=== PATIENT | male | born 1995 | race Caucasian/White ===

== ENCOUNTER 2022-03-31 20:29 | Emergency (ER) | payer OTHER ==
[~2022-03-31] VITALS: Ht 182.9 cm; Wt 90.7 kg
[2022-03-31] MEDS ORDERED: RISPERIDONE1 MG (22:15)
[2022-03-31] MEDS ORDERED: PRAZOSIN HCL1 MG (22:15)
[2022-03-31] MEDS ORDERED: NAPROSYN500 MG PO (22:27)
== END 2022-03-31 23:53 | disposition home or self-care (01) ==
LOC: ED 20:29
DX: S53.402A Unspecified sprain of left elbow, initial encounter (principal); W10.9XXA Fall (on) (from) unspecified stairs and steps, initial encounter; Z79.899 Other long term (current) drug therapy
CPT/HCPCS: 73080; 99283-25

== ENCOUNTER 2022-04-10 12:21 | Emergency (ER) | payer OTHER ==
[~2022-04-10] VITALS: Ht 182.9 cm; Wt 90.7 kg
[~2022-04-10 12:21] MED LIST: NAPROSYN500 MG PO; PRAZOSIN HCL1 MG; RISPERIDONE1 MG
--- OUTSIDE RECORDS SUMMARY | 2022-04-10 12:24 | XMS ---
PreManage Notification: RASHID SALTER Security Spin Instructor Events No recent Security Events currently on file CRITERIA MET - [facility] - 2 Visits in 30 Days CARE PROVIDERS HUI SHER Current PHONE: [phone] CARMEN VILLALBA Physician American Indian Policy Specialist Current PHONE: [phone] JOSÉ ANTONIO REINOSO [facility] PHONE: [phone] Luz Maria has no Care Guidelines for this patient. E.D. VISIT COUNT (12 MO.) 2 [facility] TOTAL 2 NOTE: Visits indicate total known visits. ED/UCC VISIT TRACKING (12 MO.) 04/10/2022 12:22 [facility] [place] TYPE: Emergency COMPLAINT: - L ELBOW PAIN 03/31/2022 20:31 [facility] [place] TYPE: Emergency COMPLAINT: - LT ARM INJURY DIAGNOSES: - Other [facility] (current) drug therapy - Pain in left elbow - Unspecified sprain of left elbow, initial encounter - Fall (on) (from) unspecified stairs and steps, initial encounter INPATIENT VISIT TRACKING (12 MO.) No inpatient visits to display in this time frame [id number]
== END 2022-04-10 16:17 | disposition home or self-care (01) ==
LOC: ED 12:21
DX: S52.122A Displaced fracture of head of left radius, initial encounter for closed fracture (principal); W18.30XA Fall on same level, unspecified, initial encounter
CPT/HCPCS: 29105; 73080; 99283-25

== ENCOUNTER → 2022-06-01 | Emergency (ER) | payer OTHER ==
[~2022-06-01] VITALS: Ht 182.9 cm; Wt 88.2 kg
[~2022-06-01] MED LIST changes: +CLONIDINE HCL0.1 MG PO; +PRAZOSIN HCL2 MG PO; -RISPERIDONE1 MG; +RISPERIDONE1 MG PO
== END ==
LOC: ED 15:39
DX: F29 Unspecified psychosis not due to a substance or known physiological condition (principal); R45.851 Suicidal ideations; Z20.822 Contact with and (suspected) exposure to COVID-19; Z79.899 Other long term (current) drug therapy
CPT/HCPCS: 36415; 80053; 81001; 84443; 85025; 87502; 99284; G0480; U0003

== ENCOUNTER → 2022-06-30 | Emergency (ER) | payer OTHER ==
[~2022-06-30] VITALS: Ht 182.9 cm; Wt 88.2 kg
[~2022-06-30] MED LIST changes: +PERPHENAZINE8 MG PO
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
== END ==
LOC: ED 11:16
DX: F29 Unspecified psychosis not due to a substance or known physiological condition (principal); Z79.899 Other long term (current) drug therapy; Z20.822 Contact with and (suspected) exposure to COVID-19
CPT/HCPCS: 36415; 80053; 81003; 84443; 85025; 87502; 99284; A9270-GY; C9803; G0480; Q0175; U0003

== ENCOUNTER 2022-08-12 11:07 | Emergency (ER) | payer OTHER ==
[~2022-08-12] VITALS: Ht 182.9 cm; Wt 91.0 kg
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
== END 2022-08-12 14:41 | disposition home or self-care (01) ==
LOC: ED 11:07
DX: Z00.8 Encounter for other general examination (principal); Z20.822 Contact with and (suspected) exposure to COVID-19; Z79.899 Other long term (current) drug therapy
CPT/HCPCS: 36415; 80053; 81001; 84443; 85025; 99283; C9803; G0480; U0003